=== PATIENT | female | born 1980 | race Hispanic/Latino ===

== ENCOUNTER 2018-11-01 01:19 | Emergency (ER) | payer BC ==
[2018-11-01 01:31] VITALS: BP 149/98
[2018-11-01] MEDS ORDERED: IBUPROFEN PO ONE (03:56)
--- NOTE | 2018-11-01 04:02 | Emergency Department Report ---
ED ENT HPI - General Chief complaint: Dental/Oral Stated complaint: MOUTH JAW PAIN Time Seen by Provider: 11/01/18 03:41 Source: patient Mode of arrival: Ambulatory Limitations: No Limitations - History of Present Illness Initial comments: Patient is a 38-year-old female presents ED complaining of right sided didn't come swelling and pain status post tooth extraction last week Sunday. Patient states that her dentist has her currently taking Percocet and clindamycin which she states the Percocet only released the pain for few hours and pain returns. Patient states that pain is also radiating upwards MD complaint: tooth pain Location: tooth # (29) 1 - extracted, swollen gingiva Severity scale (0 -10): 8 Quality: stabbing, aching Improves with: other medication Worsens with: movement (opening mouth) Context- Dental: other (dental extraction on Sunday) - Related Data Previous Rx's Medication Instructions Recorded Last Taken Type Ibuprofen [Motrin 800 MG tab] 800 mg PO TID #30 tablet 11/01/18 Unknown Rx methOCARBAMOL [Robaxin TAB] 500 mg PO BID #20 tab 11/01/18 Unknown Rx ED Dental HPI - General Chief complaint: Dental/Oral Stated complaint: MOUTH JAW PAIN Time Seen by Provider: 11/01/18 03:41 Source: patient Mode of arrival: Ambulatory Limitations: No Limitations - Related Data Previous Rx's Medication Instructions Recorded Last Taken Type Ibuprofen [Motrin 800 MG tab] 800 mg PO TID #30 tablet 11/01/18 Unknown Rx methOCARBAMOL [Robaxin TAB] 500 mg PO BID #20 tab 11/01/18 Unknown Rx ED Review of Systems ROS: Stated complaint: MOUTH JAW PAIN Other details as noted in HPI Comment: All other systems reviewed and negative ED Past Medical Hx - Past Medical History Previous Medical History?: Yes Hx of Cancer: Yes (thyroid) Hx Psychiatric Treatment: Yes (Anxiety) - Surgical History Past Surgical History?: Yes Additional Surgical History: thyroidectomy, ovarian cyst X 2. c-sect,kidney stones removal, breast reduction, hysterectomy - Social History Smoking Status: Never Smoker Substance Use Type: None - Medications Home Medications: Home Medications Medication Instructions Recorded Confirmed Last Taken Type Ibuprofen [Motrin 800 MG tab] 800 mg PO TID #30 tablet 11/01/18 Unknown Rx methOCARBAMOL [Robaxin TAB] 500 mg PO BID #20 tab 11/01/18 Unknown Rx ED Physical Exam - General Limitations: No Limitations General appearance: alert, in no apparent distress - Head Head exam: Present: atraumatic, normocephalic - Eye Eye exam: Present: normal appearance - ENT ENT exam: Present: mucous membranes moist - Neck Neck exam: Present: normal inspection - Respiratory Respiratory exam: Present: normal lung sounds bilaterally. Absent: respiratory distress - Cardiovascular Cardiovascular Exam: Present: regular rate, normal rhythm. Absent: systolic murmur, diastolic murmur, rubs, gallop - GI/Abdominal GI/Abdominal exam: Present: soft, normal bowel sounds - Extremities Exam Extremities exam: Present: normal inspection - Back Exam Back exam: Present: normal inspection - Neurological Exam Neurological exam: Present: alert, oriented X3 - Psychiatric Psychiatric exam: Present: normal affect, normal mood - Skin Skin exam: Present: warm, dry, intact, normal color. Absent: rash ED Course Vital Signs 11/01/18 01:25 Temperature 98.9 F Pulse Rate 86 Respiratory 18 Rate Blood Pressure 149/98 O2 Sat by Pulse 97 Oximetry ED Medical Decision Making - Medical Decision Making 38 y o female presents with dental pain s/p extraction last week Discussed motrin q 8 hours for pain continue clindamycin as prescribed by dentist f/u with dentist Critical care attestation.: If time is entered above; I have spent that time in minutes in the direct care of this critically ill patient, excluding procedure time. ED Disposition Clinical Impression: Pain of gingiva, H/O tooth extraction Disposition: - TO HOME OR SELFCARE Is pt being admited?: No Does the pt Need Aspirin: No Condition: Stable Instructions: Toothache (ED) Additional Instructions: Make sure to follow up with the [place] [facility] as discussed. Take all your medications as you've been prescribed. If you have any worsening symptoms or develop new symptoms please return to ED immediately. Prescriptions: Ibuprofen [Motrin 800 MG tab] 800 mg PO TID #30 tablet methOCARBAMOL [Robaxin TAB] 500 mg PO BID #20 tab Referrals: STACY POSADAS MD [Primary Care Provider] - 3-5 Days Forms: Accompanied Note, Work/School Release Form(ED) Time of Disposition: 04:05
== END 2018-11-01 04:22 | disposition home or self-care (01) ==
LOC: ED 01:19
DX: K08.89 Other specified disorders of teeth and supporting structures (principal); Z90.710 Acquired absence of both cervix and uterus
CPT/HCPCS: 99282